=== PATIENT | male | born 1945 | race Caucasian/White ===

== ENCOUNTER 2019-07-26 17:23 | Emergency (ER) | payer OTHER, MEDICARE ==
[2019-07-26 17:28] VITALS: BMI 26.7
--- NOTE | 2019-07-26 17:54 | PDOC ---
History of Present Illness - General Chief Complaint: Lightheaded Stated Complaint: DIZZINESS Time Seen by Provider: 07/26/19 17:53 History Source: Patient Exam Limitations: No Limitations - History of Present Illness Initial Comments: 07/26/19 17:54 Radames Ordaz is a 74M with PMH colorectal/anal cancer (in 2004 s/p radiation and resection w/ multiple ostomies c/b diverticulitis, revision with poor anastamosis and sepsis, cholecystecomy, DVT), anemia s/p EGD, chronic diarrhea s/p colonoscopy, HTN, HLD, presents with new onset nausea and vomiting. Patient presents with at bedside. Reports for the last week has been having nausea and vomiting with poor PO intake. Has had some room-spinning vertigo, saw ENT 5 days ago and found to not have BPPV, discharged home. Not started on meclizine, N/V persisted and presents to ED today. Also has had one year of what is described as explosive diarrhea, possibly related to meals, denies any fever/chills, abdominal pain, no history of UC/Crohn's or food allergies, seen by [facility] and is s/p colonoscopy without etiology. Past History - Past Medical History Allergies/Adverse Reactions: Allergies Allergy/AdvReac Type Severity Reaction Status Date / Time No Known Allergies Allergy Verified 07/26/19 17:26 Home Medications: Ambulatory Orders Aspirin Coated [Ecotrin] 81 mg PO DAILY 02/10/12 Simvastatin [Zocor] 40 mg PO HS 02/10/12 levoFLOXacin [Levaquin] 500 mg PO DAILY #10 tablet 02/11/12 COPD: No HTN: Yes Hypercholesterolemia: Yes Other medical history: vertigo - Psycho Social/Smoking Cessation Hx Smoking Status: No Smoking History: Former smoker Have you smoked in the past 12 months: No Number of Cigarettes Smoked Daily: 0 Information on smoking cessation initiated: No Hx Alcohol Use: No Drug/Substance Use Hx: No Review of Systems - Review of Systems Able to Perform ROS?: Yes Constitutional: No: Chills, Fever HEENTM: No: Symptoms Reported Respiratory: No: Cough, Shortness of Breath Cardiac (ROS): No: Chest Pain, Irregular Heart Rate, Lightheadedness, Palpitations, Syncope ABD/GI: Yes: Diarrhea, Nausea, Poor Appetite, Poor Fluid Intake, Vomiting. No: Constipated, Rectal Bleeding : No: Symptoms Reported Musculoskeletal: No: Symptoms Reported Integumentary: No: Symptoms Reported Neurological: Yes: Dizziness. No: Headache, Numbness, Paresthesia Endocrine: No: Symptoms Reported Hematologic/Lymphatic: Yes: Anemia, Blood Clots All Other Systems: Reviewed and Negative *Physical Exam - Vital Signs Last Vital Signs Temp Pulse Resp BP Pulse Ox 97.8 F 106 H 20 129/75 90 L 07/26/19 17:26 07/26/19 17:26 07/26/19 17:26 07/26/19 17:26 07/26/19 17:26 - Physical Exam General Appearance: Yes: Nourished, Appropriately Dressed, Obese. No: Apparent Distress HEENT: positive: EOMI, HAYDER, Normal Voice, Symmetrical, Pharynx Normal. negative: Scleral Icterus (R), Scleral Icterus (L), Pharyngeal Erythema, Tonsillar Exudate, Tonsillar Erythema Neck: positive: Trachea midline, Normal Thyroid, Supple. negative: Tender, Rigid, Lymphadenopathy (R), Lymphadenopathy (L) Respiratory/Chest: positive: Lungs Clear, Normal Breath Sounds. negative: Chest Tender, Respiratory Distress, Accessory Muscle Use, Crackles, Rales, Rhonchi, Stridor, Wheezing Cardiovascular: positive: Regular Rhythm, Regular Rate. negative: Murmur Gastrointestinal/Abdominal: positive: Normal Bowel Sounds, Flat, Soft, Distended, Other (multiple surgical scars). negative: Tender, Pulsatile Mass, Guarding, Rebound Musculoskeletal: positive: Normal Inspection. negative: CVA Tenderness, Ve rtebral Tenderness Extremity: positive: Normal Capillary Refill, Normal Inspection, Normal Range of Motion, Pelvis Stable. negative: Tender, Coldness, Cyanosis Integumentary: positive: Normal Color, Dry, Warm Neurologic: positive: Fully Oriented, Alert, Normal Mood/Affect, Normal Response ED Treatment Course - LABORATORY CBC & Chemistry Diagram: 07/26/19 19:00 07/26/19 19:00 Medical Decision Making - Medical Decision Making 07/26/19 20:24 Patient has history anal cancer/colorectal cancer extensive history of abdominal surgeries and sepsis, now having chronic diarrhea with nausea and vomiting w ithout any fevers/chills or abdominal pain. Differential includes GI pathology such as diverticulitis, colitis, short gut syndrome, gastroenteritis, C. diff, parasite infection, vertigo, ACS. VS stable, no concerning features on exam. - CBC/CMP foe eval lytes and infection/anemia - CP/ECG/CXR for eval cardiac pathology - CTAP with oral and PO contrast given extensive bowel altering surgery - CTH given lightheadedness - Coags for eval clotting status - TS in event of anemia - UA/UC for eval UTI Labs notable for: - WBC 19.2 - CMP WNL - CP WNL ECG shows: NSR with LAD abd incomplete RBBB, HR 100, QRS 108, QTc 474, no DANIELLA/D, TWI in aVL and V2 without receiprocal changes. CXR shows no acute pathoogy on bedside read. 07/26/19 23:21 CT head no acute pathology. CTAP shows no acute pathology. Still has fever and WBC 19, unclear etiology. Needs UA for eval UTI. Repeating CBC for eval if patient dry and having hemoconcentration. Ordering blood cultures to eval for WBC elevation. Signed out to Dr. Hilton. Plan for wait for UA and repeat CBC. PO challenging now. If not tolerating PO, admit for intractable vomiting. If UA showing UTI, admit for IV Abx, probably ceftriaxone. Highly recommended to patient that he should stay in hospital for further care and evaluation. Discharge - Discharge Information Problems reviewed: Yes Clinical Impression/Diagnosis: Chronic diarrhea Nausea & vomiting Qualifiers: Vomiting type: unspecified Vomiting Intractability: intractable Qualified Code(s): R11.2 - Nausea with vomiting, unspecified Condition: Stable - Follow up/Referral Referrals: Willam Leon MD [Primary Care Provider] - - Patient Discharge Instructions Patient Printed Discharge Instructions: DI for Nausea -- Adult - Post Discharge Activity
--- NOTE | 2019-07-26 18:37 | PDOC ---
Documentation entered by Roselia Arevalo SCRIBE, acting as scribe for Kathi Gutierrez MD. Kathi Gutierrez MD: This documentation has been prepared by the Mickey wadsworth Brenda, SCRIBE, under my direction and personally reviewed by me in its entirety. I confirm that the documentation accurately reflects all work, treatment, procedures, and medical decision making performed by me. Attending Attestation - Resident Resident Name: MadithuBladimir - ED Attending Attestation I have performed the following: I have examined & evaluated the patient, The case was reviewed & discussed with the resident, I agree w/resident's findings & plan, Exceptions are as noted - HPI HPI: 07/26/19 18:35 74-year-old male presents because of nausea vomiting and diarrhea that started 2 days ago. He had complaint lightheadedness. PCP is Dr. Eric Leon - Physicial Exam PE: 07/26/19 18:36 Tall slender alert 74-year-old male complaining lightheadedness after multiple episodes of nausea vomiting diarrhea Head normocephalic atraumatic Lungs are clear to auscultation bilaterally CVS regular rate and rhythm S1-S2 Abdomen multiple well-healed surgical scars, no guarding Extremities no pitting edema Skin warm and dry Neuro alert and oriented x3, moving all extremities, motor strength 5 out of 5 bilaterally Psych appropriate - Medical Decision Making 07/26/19 19:17 74-year-old male with a history of multiple abdominal surgeries for diverticulitis presents with 2 days of nausea vomiting diarrhea Everything he seen today since practice he is vomited. Past medical history diabetes, hypertension, DVT, 07/26/19 19:55 This gentleman has had anal cancer, diverticulitis with a colostomy bag and revision and subsequent abscesses in the remote past. Plans CAT scan of the abdomen pelvis with p.o. and IV contrast 07/27/19 02:22 Patient had an oral fever CAT scan abdomen pelvis did not show any acute abdominal pathology However the patient does have a significant leukocytosis, and fever and given his complicated surgery surgical history we want to admit him The patient refuses to be admitted Patient will leave AMA
[2019-07-26 19:07] LABS: BASO % 0.4 % (0-2.0); HEMATOCRIT 49.8 % (35.4-49); HEMOGLOBIN 16.9 GM/dL (11.7-16.9); LYMPH % 6.5 % (8-40); MCH 31.2 pg (25.7-33.7); MCHC 33.9 g/dl (32.0-35.9); MEAN CELL VOLUME 92.1 fl (80-96); MEAN PLT VOLUME 10.2 fl (7.5-11.1); MONO % 9.8 % (3.8-10.2); NEUT % 83.3 % (42.8-82.8); PLATELET COUNT 265 K/MM3 (134-434); RBC 5.41 M/mm3 (4.00-5.60); RDW 14.3 % (11.9-15.9); WHITE BLOOD COUNT 19.2 K/mm3 (4.0-10.0)
[2019-07-26] MEDS ORDERED: SODIUM CHLORIDE 0.9% 500 ML INFUS.BAG IV ONE ×2 (19:20→23:17)
[2019-07-26] MEDS ORDERED: MECLIZINE HCL 25 MG TABLET (FP) PO ONE (19:22)
[2019-07-26] MEDS ORDERED: ONDANSETRON 4 MG/2 ML VIAL ONE (19:27)
[2019-07-26 19:39] LABS: ALBUMIN 3.9 g/dl (3.4-5.0); ALK PHOS 71 U/L (45-117); ANION GAP 12 MMOL/L (8-16); BILIRUBIN,TOTAL 0.4 mg/dL (0.2-1); BLOOD UREA NITROGEN 29.2 mg/dL (7-18); CALCIUM 9.2 mg/dL (8.5-10.1); CHLORIDE 102 mmol/L (98-107); CO2 25 mmol/L (21-32); CREATININE 1.2 mg/dL (0.55-1.3); GLUCOSE,RANDOM 207 mg/dL (74-106); POTASSIUM 3.6 mmol/L (3.5-5.1); SGOT/AST 35 U/L (15-37); SGPT/ALT 66 U/L (13-61); SODIUM 138 mmol/L (136-145); TOT PROT 8.3 g/dl (6.4-8.2)
[2019-07-26] MEDS ORDERED: ONDANSETRON 4 MG/2 ML VIAL IVPB ONE (19:48)
[2019-07-26] MEDS ORDERED: MECLIZINE HCL 25 MG TABLET (FP) ONE (20:27)
[2019-07-26 21:41] VITALS: BP 146/77; PULSE 94; TEMP 100.1
--- NOTE | 2019-07-26 23:58 | PDOC ---
*Physical Exam - Vital Signs Last Vital Signs Temp Pulse Resp BP Pulse Ox 100.1 F H 94 H 20 146/77 97 07/26/19 21:39 07/26/19 21:39 07/26/19 17:26 07/26/19 21:39 07/26/19 21:39 ED Treatment Course - LABORATORY CBC & Chemistry Diagram: 07/27/19 00:00 07/26/19 19:00 - ADDITIONAL ORDERS Additional order review: Laboratory Results 07/26/19 07/26/19 19:40 19:00 Sodium 138 Potassium 3.6 Chloride 102 Carbon Dioxide 25 Anion Gap 12 BUN 29.2 H Creatinine 1.2 Est GFR (CKD-EPI)AfAm 68.15 Est GFR (CKD-EPI)NonAf 58.80 Random Glucose 207 H Calcium 9.2 Total Bilirubin 0.4 AST 35 ALT 66 H Alkaline Phosphatase 71 Creatine Kinase 66 Troponin I < 0.02 Total Protein 8.3 H Albumin 3.9 Blood Type O POSITIVE Antibody Screen Negative 07/26/19 19:00 RBC 5.41 MCV 92.1 MCHC 33.9 RDW 14.3 MPV 10.2 D Neutrophils % 83.3 H Lymphocytes % 6.5 L Monocytes % 9.8 D Eosinophils % 0.0 D Basophils % 0.4 D - Medications Given in the ED: ED Medications Discontinued Medications Generic Name Dose Route Start Last Admin Trade Name Freq PRN Reason Stop Dose Admin Meclizine HCl 25 mg 07/26/19 19:22 07/26/19 20:41 Antivert - PO 07/26/19 19:23 25 mg ONCE ONE Administration Ondansetron HCl 4 mg 07/26/19 19:48 07/26/19 19:48 Zofran Injection IVPB 07/26/19 19:49 4 mg ONCE ONE Administration Sodium Chloride 1,000 ml 07/26/19 19:20 07/26/19 19:47 Normal Saline - IV 07/26/19 19:21 1,000 ml ONCE ONE Administration Sodium Chloride 1,000 ml 07/26/19 23:17 07/26/19 23:24 Normal Saline - IV 07/26/19 23:18 1,000 ml ONCE ONE Administration Medical Decision Making - Medical Decision Making 07/26/19 23:[address] Salguero 1 week of n/v, lightheaded. History of CRC with multiple surgeries. post prandial diarrhea. CTAP negative. head CT negative. WBC 19 with shift, 100.1 temperature. chem wnl, negative trop. pending UA. bcx, rpt cbc in regards to cbc. po challenge. 07/27/19 00:08 07/27/19 03:59 pt tolerated juice po. UA negative for infection. pt states he is feeling better. Given leukocytosis, fever, n/v/d and comorbidities, pt will benefit from admission. pt is refusing admission. Discussed in depth about the decision to admit with patient and spouse. patient says he was feeling better but concerned. Pt ambulatory with my assistance stating he does not feel dizzy. pt has capacity, can refuse treatment. He was informed that his condition could deteriorate. Advised to return to ER if his symptoms return. signed out AMA Discharge - Discharge Information Problems reviewed: Yes Clinical Impression/Diagnosis: Chronic diarrhea Nausea & vomiting Qualifiers: Vomiting type: unspecified Vomiting Intractability: intractable Qualified Code(s): R11.2 - Nausea with vomiting, unspecified Condition: Stable Disposition: AGAINST MEDICAL ADVICE - Additional Discharge Information Prescriptions: Meclizine HCl [Antivert -] 25 mg PO BID #10 tablet - Follow up/Referral Referrals: Willam Leon MD [Primary Care Provider] - - Patient Discharge Instructions Patient Printed Discharge Instructions: DI for Nausea -- Adult Additional Instructions: Please come back to the ER if you are continuing to feel dizzy, continue vomiting, continue to have diarrhea. A prescription for meclizine was sent to the pharmacy, take as directed. Drink plenty of fluids! slowly advance the diet to clear soups, michaela lance then to soft solids like bananas and toast. Remember to stay hydrated. Follow up with your primary care doctor this week! Thank you - Post Discharge Activity
[2019-07-27 00:33] LABS: BASO % 0.4 % (0-2.0); HEMATOCRIT 46.4 % (35.4-49); HEMOGLOBIN 15.3 GM/dL (11.7-16.9); LYMPH % 9.9 % (8-40); MCH 30.5 pg (25.7-33.7); MCHC 32.9 g/dl (32.0-35.9); MEAN CELL VOLUME 92.6 fl (80-96); MEAN PLT VOLUME 9.9 fl (7.5-11.1); MONO % 9.9 % (3.8-10.2); NEUT % 79.8 % (42.8-82.8); PLATELET COUNT 238 K/MM3 (134-434); RBC 5.01 M/mm3 (4.00-5.60); RDW 14.7 % (11.9-15.9); WHITE BLOOD COUNT 16.6 K/mm3 (4.0-10.0)
[2019-07-27 01:38] LABS: URINE APPEARANCE CLEAR; URINE COLOR YELLOW
[2019-07-27 01:40] LABS: URINE BILIRUBIN NEGATIVE (NEGATIVE); URINE GLUCOSE (UA) 250 (NEGATIVE); URINE KETONE NEGATIVE (NEGATIVE)
[2019-07-27 01:41] LABS: EPI CELLS 1.3 /HPF (0-5/HPF); HYALINE CASTS 3.34 /lpf (0-8); URINE LEUK ESTERASE NEGATIVE (NEGATIVE); URINE NITRITE NEGATIVE (NEGATIVE); URINE PROTEIN 30 (NEGATIVE); URINE RBC 1.4 /hpf (0-4); URINE UROBILINOGEN 0.2 mg/dL (0.2-1.0); URINE WBC 0.8 /hpf (0-5)
[2019-07-27 01:42] LABS: URINE BACTERIA 0.3 /hpf (NEGATIVE)
--- NOTE | 2019-07-27 10:14 | EKG ---
Test Reason : Blood Pressure : / mmHG Vent. Rate : 100 BPM Atrial Rate : 100 BPM P-R Int : 184 ms QRS Dur : 108 ms QT Int : 368 ms P-R-T Axes : 049 -68 091 degrees QTc Int : 474 ms NORMAL SINUS RHYTHM LEFT AXIS DEVIATION INCOMPLETE RIGHT BUNDLE BRANCH BLOCK NONSPECIFIC ST AND T WAVE ABNORMALITY ABNORMAL ECG WHEN COMPARED WITH ECG OF 10-FEB-2012 20:26, INCOMPLETE RIGHT BUNDLE BRANCH BLOCK IS NOW PRESENT Confirmed by Rigo Reyna ([id number]) on 07/27/2019 10:13:50 AM Referred By: Confirmed By:Rigo Reyna
== END 2019-07-27 02:20 | disposition left against medical advice (07) ==
LOC: JER 17:23
PROC: 3E033GC Introduction of Other Therapeutic Substance into Peripheral Vein, Percutaneous Approach (ICD-10-PCS; principal; 2019-07-26)
DX: R11.2 Nausea with vomiting, unspecified (principal); R42 Dizziness and giddiness; R19.7 Diarrhea, unspecified; I10 Essential (primary) hypertension; E78.5 Hyperlipidemia, unspecified; D64.9 Anemia, unspecified; D72.829 Elevated white blood cell count, unspecified; Z87.891 Personal history of nicotine dependence; Z85.038 Personal history of other malignant neoplasm of large intestine; Z86.718 Personal history of other venous thrombosis and embolism
CPT/HCPCS: 36415; 70450-TC; 71045-TC-FY; 74177-TC; 80053; 81003; 82550; 84484; 85025; 86850; 86900; 86901; 87040; 87086; 93005; 93010; 96374; 99285-25; Q9967